=== PATIENT | female | born 1935 | race Caucasian/White ===

== ENCOUNTER 2016-06-22 22:32 | Emergency (ER) | payer MEDICARE, BC ==
[~2016-06-22] VITALS: Ht 149.9 cm; Wt 44.5 kg
[~2016-06-22 22:32] MED LIST: ALBUTEROL0.83 MG/ML IH; ARICEPT10 MG PO; ASPIRIN 32325 MG/TA1 PO; ASPIRIN 81M81 MG/TA2 PO; ASPIRIN E.C. 8181 MG PO; B COMPLEX & B121 TAB PO; BONIVA150 MG PO; CARDIOSTEROL PO; FOLIC ACID 40400 MCG PO; KLOR-CON M1010 MEQ PO; LASIX 20MG TABL20 MG PO; LEVAQUIN 750MG750 M1 PO; LOMOTIL 0.025 M1 TAB PO; MACROBID 1100 MG/CAP PO; MIRALAX PA17 GM/Dose PO; MULTIPLE VITAMI1 CAP PO; NIASPAN750 MG PO; NORCO 325 MG-51 TAB PO; OMEGA 31000 MG PO; OPTIVE 0.5%-0.915 ML OP; OSCAL 500 TAB500 MG PO; PROTONIX 40MG T40 MG PO; ROXICODONE 55 MG/TAB PO; TOPROL XL 25MG25 MG PO; TYLENOL PM EXTR1 TA1 PO; ULTRAM 50MG TAB50 MG PO; VITAMIN B12500 MCG PO; VITAMIN D31000 I1 PO; WELCHOL 625MG625 MG PO; WELLBUTRIN SR150 M1 PO; ZOFRAN8 MG PO
[2016-06-22 22:34] VITALS: BP 128/68; TEMP 97.4
[2016-06-22] MEDS ORDERED: LOMOTIL 0.025 M1 TAB PO (22:59)
[2016-06-22] MEDS ORDERED: ZOFRAN8 MG PO (22:59)
[2016-06-22] MEDS ORDERED: PRILOSEC10 MG PO (23:01)
[2016-06-22 23:18] LABS: BASO # 0.1 (0.0-0.2); BASO % 1.2 % (0.0-2.0); EOS # 0.4 (0.0-0.7); GRAN # 4.6 (1.4-6.5); GRAN % 62.1 % (42.2-75.2); HEMATOCRIT 40.4 % (37.0-47.0); HEMOGLOBIN 13.2 g/dl (12.5-16.0); LYMPH # 1.7 (1.2-3.4); MEAN CELL VOLUME 92 fl (80.0-100.0); MEAN CORPUSCULAR HEMOGLOBIN 30 pg (27.0-31.0); MEAN CORPUSCULAR HGB CONC 33 g/dl (33.0-37.0); MEAN PLATELET VOLUME 9.9 fl (7.4-10.4); MONO # 0.6 (0.1-0.6); MONO % 8.4 % (1.7-9.3); PLATELET COUNT 250 K/mm3 (130-400); RED BLOOD COUNT 4.37 M/mm3 (4.10-5.30); REDCELL DISTRIBUTION WIDTH-CV 13.6 % (11.5-14.5); WHITE BLOOD COUNT 7.3 K/mm3 (4.8-10.8)
[2016-06-22 23:29] LABS: ALANINE AMINOTRANSFERASE 18 U/L (9-52); ALBUMIN 4.1 gm/dL (3.5-5.0); ALKALINE PHOSPHATASE 59 U/L (50-136); ANION GAP 11 mmol/L (7-16); BILIRUBIN,TOTAL 0.7 mg/dL (0.0-1.0); BLOOD UREA NITROGEN 29 mg/dL (7-17); CALCIUM 9.1 mg/dL (8.4-10.2); CARBON DIOXIDE 26 mmol/L (22-30); CHLORIDE 101 mmol/L (98-107); GLUCOSE 112 mg/dL (74-106); LIPASE 296 U/L (23-300); POTASSIUM 4.6 mmol/L (3.4-5.0); SODIUM 137 mmol/L (137-145)
[2016-06-22 23:35] LABS: B-TYPE NATRIURETIC PEPTIDE 715 pg/mL (0-450)
[2016-06-22 23:36] LABS: C-REACTIVE PROTEIN < 0.5 mg/dL (0.0-0.9)
[2016-06-22 23:39] LABS: PH 5 (5-8); SQUAMOUS EPITHELIAL 0-2 /hpf; URINE APPEARANCE Hazy; URINE BACTERIA Occasional /hpf; URINE BILIRUBIN Negative (NEGATIVE); URINE BLOOD 1+ (NEGATIVE); URINE COLOR Yellow; URINE GLUCOSE Negative (NEGATIVE); URINE KETONE Negative (NEGATIVE); URINE UROBILINOGEN Negative (NEGATIVE); URINE WBC 20-50 /hpf
[2016-06-23] MEDS ORDERED: MACRODANTIN100 PO (00:16)
[2016-06-23 00:33] VITALS: PULSE 68
== END 2016-06-23 00:35 | disposition home or self-care (01) ==
LOC: COL.ER 22:32
PROVIDERS: Family Medicine
DX: N30.01 Acute cystitis with hematuria (principal); B96.20 Unspecified Escherichia coli [E. coli] as the cause of diseases classified elsewhere; I25.2 Old myocardial infarction; F03.90 Unspecified dementia, unspecified severity, without behavioral disturbance, psychotic disturbance, mood disturbance, and anxiety; I25.10 Atherosclerotic heart disease of native coronary artery without angina pectoris; Z95.5 Presence of coronary angioplasty implant and graft; Z87.891 Personal history of nicotine dependence
CPT/HCPCS: J2405; J7030

== ENCOUNTER 2017-01-25 15:06 | Inpatient (IN) | payer MEDICARE, BC ==
[~2017-01-25] VITALS: Ht 149.9 cm; Wt 53.6 kg
[~2017-01-25 15:06] MED LIST changes: +MACRODANTIN100 PO; +PRILOSEC10 MG PO
[2017-01-25 16:05] LABS: BASO # 0.1 (0.0-0.2); BASO % 0.8 % (0.0-2.0); EOS # 0.2 (0.0-0.7); GRAN # 14.4 (1.4-6.5); GRAN % 86.2 % (42.2-75.2); HEMATOCRIT 48.4 % (37.0-47.0); HEMOGLOBIN 15.6 g/dl (12.5-16.0); LYMPH # 1.3 (1.2-3.4); LYMPH % 7.7 % (20.0-51.0); MEAN CELL VOLUME 93 fl (80.0-100.0); MEAN CORPUSCULAR HEMOGLOBIN 30 pg (27.0-31.0); MEAN CORPUSCULAR HGB CONC 32 g/dl (33.0-37.0); MEAN PLATELET VOLUME 10.3 fl (7.4-10.4); MONO # 0.6 (0.1-0.6); MONO % 3.8 % (1.7-9.3); PLATELET COUNT 260 K/mm3 (130-400); RED BLOOD COUNT 5.22 M/mm3 (4.10-5.30); WHITE BLOOD COUNT 16.7 K/mm3 (4.8-10.8)
[2017-01-25 16:16] LABS: ADJUSTED CALCIUM 9.4 mg/dL (8.4-10.2); ALANINE AMINOTRANSFERASE 24 U/L (9-52); ALBUMIN 4.6 gm/dL (3.5-5.0); ALKALINE PHOSPHATASE 81 U/L (50-136); ANION GAP 12 mmol/L (7-16); BILIRUBIN,TOTAL 0.9 mg/dL (0.0-1.0); BLOOD UREA NITROGEN 28 mg/dL (7-17); CALCIUM 9.9 mg/dL (8.4-10.2); CARBON DIOXIDE 27 mmol/L (22-30); CHLORIDE 103 mmol/L (98-107); CREATININE, serum 0.94 mg/dL (0.52-1.25); GLUCOSE 113 mg/dL (74-106); POTASSIUM 4.2 mmol/L (3.4-5.0); SODIUM 142 mmol/L (137-145); TOTAL PROTEIN 7.9 gm/dL (6.4-8.2)
[2017-01-25 16:17] LABS: C-REACTIVE PROTEIN < 0.5 mg/dL (0.0-0.9)
[2017-01-25] MEDS ORDERED: NAMENDA 10MG TA10 MG PO (17:49)
[2017-01-25 21:23] VITALS: BP 150/61; PULSE 65; TEMP 65; TEMP 97.3
[2017-01-26] VITALS (7 sets, daily range): BP systolic 101–145; BP diastolic 53–72; PULSE 70–90; TEMP 98–99.5
[2017-01-26 06:44] LABS: BASO # 0.1 (0.0-0.2); BASO % 0.8 % (0.0-2.0); EOS # 0.1 (0.0-0.7); EOS % 1.2 % (0-4.0); GRAN # 7.8 (1.4-6.5); GRAN % 75.4 % (42.2-75.2); HEMATOCRIT 37.5 % (37.0-47.0); LYMPH # 1.2 (1.2-3.4); LYMPH % 11.7 % (20.0-51.0); MEAN CELL VOLUME 94 fl (80.0-100.0); MEAN CORPUSCULAR HEMOGLOBIN 30 pg (27.0-31.0); MEAN CORPUSCULAR HGB CONC 33 g/dl (33.0-37.0); MEAN PLATELET VOLUME 10.3 fl (7.4-10.4); MONO # 1.1 (0.1-0.6); MONO % 10.5 % (1.7-9.3); PLATELET COUNT 218 K/mm3 (130-400); RED BLOOD COUNT 4.01 M/mm3 (4.10-5.30); WHITE BLOOD COUNT 10.3 K/mm3 (4.8-10.8)
[2017-01-26 06:57] LABS: CALCIUM 7.5 mg/dL (8.4-10.2); CHOLESTEROL RISK RATIO 4.1; CREATININE, serum 0.7 mg/dL (0.52-1.25); POTASSIUM 3.4 mmol/L (3.4-5.0)
[2017-01-26 07:00] LABS: HEMOGLOBIN 12.2 g/dl (12.5-16.0)
[2017-01-26 08:47] LABS: COLLECTION METHOD CLEAN CATCH
[2017-01-26 09:03] LABS: MUCOUS Present /lpf; PH 5 (5-8); SQUAMOUS EPITHELIAL None Seen /hpf; URINE APPEARANCE Hazy; URINE BACTERIA None Seen /hpf; URINE BILIRUBIN Negative (NEGATIVE); URINE BLOOD 3+ (NEGATIVE); URINE COLOR Yellow; URINE GLUCOSE Negative (NEGATIVE); URINE KETONE 1+ (NEGATIVE); URINE LEUKOCYTE ESTERASE 3+ (NEGATIVE); URINE PROTEIN(semi-quant) 1+ (NEGATIVE); URINE RBC >50 /hpf; URINE UROBILINOGEN Negative (NEGATIVE)
[2017-01-26 09:04] LABS: URINE WBC >50 /hpf
[2017-01-26 15:05] LABS: HEMATOCRIT 39.5 % (37.0-47.0); HEMOGLOBIN 12.5 g/dl (12.5-16.0)
[2017-01-27] VITALS (13 sets, daily range): BP systolic 106–154; BP diastolic 52–96; PULSE 70–99; TEMP 97.3–98.5
[2017-01-27 07:20] LABS: BASO # 0.1 (0.0-0.2); BASO % 0.6 % (0.0-2.0); EOS # 0.2 (0.0-0.7); EOS % 1.6 % (0-4.0); GRAN # 11.6 (1.4-6.5); GRAN % 79.9 % (42.2-75.2); HEMATOCRIT 37.2 % (37.0-47.0); LYMPH # 1.4 (1.2-3.4); LYMPH % 9.7 % (20.0-51.0); MEAN CELL VOLUME 94 fl (80.0-100.0); MEAN CORPUSCULAR HEMOGLOBIN 30 pg (27.0-31.0); MEAN CORPUSCULAR HGB CONC 32 g/dl (33.0-37.0); MONO # 1.1 (0.1-0.6); MONO % 7.9 % (1.7-9.3); PLATELET COUNT 206 K/mm3 (130-400); RED BLOOD COUNT 3.97 M/mm3 (4.10-5.30); WHITE BLOOD COUNT 14.5 K/mm3 (4.8-10.8)
[2017-01-27 07:22] LABS: HEMOGLOBIN 11.9 g/dl (12.5-16.0)
[2017-01-27 07:48] LABS: CALCIUM 7.2 mg/dL (8.4-10.2); CREATININE, serum 0.58 mg/dL (0.52-1.25)
[2017-01-27 07:52] LABS: POTASSIUM 2.7 mmol/L (3.4-5.0)
[2017-01-28 04:51] VITALS: BP 143/76; PULSE 73; TEMP 97.6
[2017-01-28 07:23] LABS: BASO % 0.2 % (0.0-2.0); GRAN # 8.4 (1.4-6.5); GRAN % 89.9 % (42.2-75.2); HEMATOCRIT 37.7 % (37.0-47.0); LYMPH # 0.8 (1.2-3.4); LYMPH % 8.6 % (20.0-51.0); MEAN CELL VOLUME 94 fl (80.0-100.0); MEAN CORPUSCULAR HEMOGLOBIN 30 pg (27.0-31.0); MEAN CORPUSCULAR HGB CONC 32 g/dl (33.0-37.0); MEAN PLATELET VOLUME 11.1 fl (7.4-10.4); MONO # 0.1 (0.1-0.6); MONO % 0.9 % (1.7-9.3); PLATELET COUNT 210 K/mm3 (130-400); RED BLOOD COUNT 4.01 M/mm3 (4.10-5.30); WHITE BLOOD COUNT 9.3 K/mm3 (4.8-10.8)
[2017-01-28 07:35] LABS: CALCIUM 7.6 mg/dL (8.4-10.2); CREATININE, serum 0.62 mg/dL (0.52-1.25); MAGNESIUM 2.1 mg/dL (1.6-2.3); POTASSIUM 4.4 mmol/L (3.4-5.0)
[2017-01-28 09:31] VITALS: BP 127/65; PULSE 78; TEMP 98.2
[2017-01-28] MEDS ORDERED: ZYRTEC 10MG10 MG PO (09:42)
[2017-01-28] MEDS ORDERED: PREDNISONE20 MG PO (09:43)
[2017-01-28] MEDS ORDERED: ZANTAC 150MG T150 MG PO (09:43)
[2017-01-28] MEDS ORDERED: ASACOL HD800 MG PO (09:46)
[2017-01-29] MEDS ORDERED: FLAGYL500 MG PO (15:15)
== END 2017-01-28 11:30 | disposition home or self-care (01) | DRG 393 ==
LOC: COL.ER 15:06 → SURG 19:09
PROVIDERS: Emergency Medicine; Internal Medicine Gastroenterology; Nurse Practitioner; Nurse Practitioner Family; Physician Assistant
PROC: 0DBM8ZX Excision of Descending Colon, Via Natural or Artificial Opening Endoscopic, Diagnostic (ICD-10-PCS; 2017-01-27)
PROC: 0W3P8ZZ Control Bleeding in Gastrointestinal Tract, Via Natural or Artificial Opening Endoscopic (ICD-10-PCS; principal; 2017-01-27 09:30)
DX: K55.031 Focal (segmental) acute (reversible) ischemia of large intestine (principal); K55.21 Angiodysplasia of colon with hemorrhage; N39.0 Urinary tract infection, site not specified; Z66 Do not resuscitate; E86.0 Dehydration; I11.0 Hypertensive heart disease with heart failure; I50.9 Heart failure, unspecified; Z87.891 Personal history of nicotine dependence; F03.90 Unspecified dementia, unspecified severity, without behavioral disturbance, psychotic disturbance, mood disturbance, and anxiety; L29.8 Other pruritus; T37.8X5A Adverse effect of other specified systemic anti-infectives and antiparasitics, initial encounter; E87.6 Hypokalemia; K57.30 Diverticulosis of large intestine without perforation or abscess without bleeding; K64.0 First degree hemorrhoids
CPT/HCPCS: 99222-AI; 99231-AI; 99239; J1200; J1644; J1956; J2405; J2704; J2765; J3010; J3475; J7030; J7050; J7512; Q9967

== ENCOUNTER 2017-06-29 21:48 | Emergency (ER) | payer MEDICARE, BC ==
[~2017-06-29] VITALS: Ht 152.4 cm; Wt 46.4 kg
[~2017-06-29 21:48] MED LIST changes: +ASACOL HD800 MG PO; +FLAGYL500 MG PO; +NAMENDA 10MG TA10 MG PO; +PREDNISONE20 MG PO; +ZANTAC 150MG T150 MG PO; +ZYRTEC 10MG10 MG PO
[2017-06-29 21:50] VITALS: TEMP 97.1
[2017-06-29 23:00] LABS: PROTHROMBIN TIME 11.4 SECONDS (9.7-12.8)
[2017-06-29 23:05] LABS: BASO # 0.1 (0.0-0.2); BASO % 1.1 % (0.0-2.0); EOS # 0.4 (0.0-0.7); EOS % 5.5 % (0-4.0); GRAN # 4.4 (1.4-6.5); GRAN % 56.1 % (42.2-75.2); HEMATOCRIT 43.4 % (37.0-47.0); HEMOGLOBIN 13.7 g/dl (12.5-16.0); LYMPH # 2.2 (1.2-3.4); LYMPH % 27.7 % (20.0-51.0); MEAN CELL VOLUME 93 fl (80.0-100.0); MEAN CORPUSCULAR HEMOGLOBIN 29 pg (27.0-31.0); MEAN CORPUSCULAR HGB CONC 32 g/dl (33.0-37.0); MEAN PLATELET VOLUME 9.7 fl (7.4-10.4); MONO # 0.7 (0.1-0.6); MONO % 9.3 % (1.7-9.3); PLATELET COUNT 247 K/mm3 (130-400); RED BLOOD COUNT 4.67 M/mm3 (4.10-5.30); REDCELL DISTRIBUTION WIDTH-CV 14.1 % (11.5-14.5)
[2017-06-29 23:05] LABS: ALBUMIN 4.2 gm/dL (3.5-5.0); BILIRUBIN,TOTAL 0.5 mg/dL (0.0-1.0); CREATININE, serum 0.82 mg/dL (0.52-1.25); POTASSIUM 4.1 mmol/L (3.4-5.0); TOTAL PROTEIN 8.4 gm/dL (6.4-8.2)
[2017-06-29] MEDS ORDERED: ASPIRIN 81M81 MG/TA2 PO (23:35)
[2017-06-29 23:53] LABS: COLLECTION METHOD CLEAN CATCH
[2017-06-30] LABS: AMORPHOUS CRYSTAL Present /uL; MUCOUS Present /lpf; PH 6 (5-8); SQUAMOUS EPITHELIAL 0-2 /hpf; URINE APPEARANCE Hazy; URINE BACTERIA Rare /hpf; URINE BILIRUBIN Negative (NEGATIVE); URINE BLOOD Negative (NEGATIVE); URINE COLOR Yellow; URINE GLUCOSE Negative (NEGATIVE); URINE KETONE Negative (NEGATIVE); URINE LEUKOCYTE ESTERASE Trace (NEGATIVE); URINE NITRATE Positive (NEGATIVE); URINE PROTEIN(semi-quant) Negative (NEGATIVE); URINE RBC 0-2 /hpf; URINE UROBILINOGEN Negative (NEGATIVE)
[2017-06-30 04:38] VITALS: BP 173/80; PULSE 69
[2017-07-01] MEDS ORDERED: MACROBID 1100 MG/CAP PO (16:38)
== END 2017-06-30 04:28 | disposition short-term general hospital (02) ==
LOC: COL.ER 21:48
PROVIDERS: Emergency Medicine
DX: I77.89 Other specified disorders of arteries and arterioles (principal); N39.0 Urinary tract infection, site not specified; R07.89 Other chest pain; I11.0 Hypertensive heart disease with heart failure; I50.9 Heart failure, unspecified; K21.9 Gastro-esophageal reflux disease without esophagitis; F03.90 Unspecified dementia, unspecified severity, without behavioral disturbance, psychotic disturbance, mood disturbance, and anxiety; Z87.891 Personal history of nicotine dependence; Z87.440 Personal history of urinary (tract) infections; Z90.710 Acquired absence of both cervix and uterus; Z90.49 Acquired absence of other specified parts of digestive tract; Z90.89 Acquired absence of other organs; Z96.641 Presence of right artificial hip joint; Z79.82 Long term (current) use of aspirin
CPT/HCPCS: J0696; J2270; J3010; Q9967

== ENCOUNTER 2017-07-25 14:17 | Inpatient (IN) | payer MEDICARE, BC ==
[~2017-07-25] VITALS: Ht 167.6 cm; Wt 41.8 kg
[2017-07-25 15:17] LABS: BASO # 0.1 (0.0-0.2); BASO % 0.6 % (0.0-2.0); EOS # 0.1 (0.0-0.7); EOS % 0.3 % (0-4.0); GRAN # 15.1 (1.4-6.5); GRAN % 86.3 % (42.2-75.2); HEMOGLOBIN 13.1 g/dl (12.5-16.0); LYMPH # 1.1 (1.2-3.4); LYMPH % 6.2 % (20.0-51.0); MEAN CELL VOLUME 96 fl (80.0-100.0); MEAN CORPUSCULAR HEMOGLOBIN 29 pg (27.0-31.0); MEAN CORPUSCULAR HGB CONC 31 g/dl (33.0-37.0); MEAN PLATELET VOLUME 10.1 fl (7.4-10.4); MONO # 1.1 (0.1-0.6); PLATELET COUNT 364 K/mm3 (130-400); RED BLOOD COUNT 4.46 M/mm3 (4.10-5.30); REDCELL DISTRIBUTION WIDTH-CV 13.7 % (11.5-14.5)
[2017-07-25 16:06] LABS: INR 1.2 (0.8-3.0); PROTHROMBIN TIME 14.2 SECONDS (9.7-12.8)
[2017-07-25 16:10] LABS: ALANINE AMINOTRANSFERASE 32 U/L (9-52); ALBUMIN 3.4 gm/dL (3.5-5.0); ALKALINE PHOSPHATASE 113 U/L (50-136); ANION GAP 15 mmol/L (7-16); AST,SGOT 30 U/L (15-37); BILIRUBIN,TOTAL 0.5 mg/dL (0.0-1.0); BLOOD UREA NITROGEN 37 mg/dL (7-17); CALCIUM 8.9 mg/dL (8.4-10.2); CARBON DIOXIDE 26 mmol/L (22-30); CHLORIDE 103 mmol/L (98-107); CREATININE, serum 1.23 mg/dL (0.52-1.25); GLUCOSE 211 mg/dL (74-106); POTASSIUM 4.1 mmol/L (3.4-5.0); SODIUM 144 mmol/L (137-145); TOTAL PROTEIN 7.4 gm/dL (6.4-8.2)
[2017-07-25 16:24] LABS: TROPONIN-I < 0.012 ng/mL (0.000-0.034)
[2017-07-25] MEDS ORDERED: TYLENOL 325MG325 MG PO (16:53)
[2017-07-25] MEDS ORDERED: LOMOTIL 0.025 M1 TAB PO (16:53)
[2017-07-25] MEDS ORDERED: OXYGEN MC (16:55)
[2017-07-25] MEDS ORDERED: XOPENEX 0.0.63 MG/3 IH (16:55)
[2017-07-25] MEDS ORDERED: FERRO-TIME325 MG PO (16:59)
[2017-07-25] MEDS ORDERED: PRINIVIL10 MG PO (17:00)
[2017-07-25 17:18] LABS: COLLECTION METHOD CATHETER
[2017-07-25 17:35] LABS: C-REACTIVE PROTEIN 18.8 mg/dL (0.0-0.9)
[2017-07-25 17:37] LABS: BUDDING YEAST Present /hpf; MUCOUS Present /lpf; PH 5 (5-8); SQUAMOUS EPITHELIAL 0-2 /hpf; URINE APPEARANCE Cloudy; URINE BACTERIA Rare /hpf; URINE BILIRUBIN Negative (NEGATIVE); URINE BLOOD 1+ (NEGATIVE); URINE COLOR Yellow; URINE GLUCOSE Negative (NEGATIVE); URINE KETONE Negative (NEGATIVE); URINE LEUKOCYTE ESTERASE Negative (NEGATIVE); URINE NITRATE Negative (NEGATIVE); URINE PROTEIN(semi-quant) 1+ (NEGATIVE); URINE UROBILINOGEN Negative (NEGATIVE)
[2017-07-25 19:20] VITALS: BP 109/65; PULSE 95; TEMP 97.7
[2017-07-25 23:34] VITALS: BP 106/60; PULSE 88; TEMP 97.5
[2017-07-26 03:41] VITALS: BP 115/56; PULSE 88; TEMP 97.5
[2017-07-26 06:07] LABS: MEAN CELL VOLUME 94 fl (80.0-100.0); MEAN CORPUSCULAR HGB CONC 31 g/dl (33.0-37.0); MEAN PLATELET VOLUME 9.9 fl (7.4-10.4); PLATELET COUNT 303 K/mm3 (130-400); RED BLOOD COUNT 3.48 M/mm3 (4.10-5.30); REDCELL DISTRIBUTION WIDTH-CV 13.7 % (11.5-14.5)
[2017-07-26 06:14] LABS: CALCIUM 8.1 mg/dL (8.4-10.2); CREATININE, serum 1.05 mg/dL (0.52-1.25); MAGNESIUM 2.2 mg/dL (1.6-2.3); POTASSIUM 4.2 mmol/L (3.4-5.0)
[2017-07-26 06:18] LABS: HEMATOCRIT 32.6 % (37.0-47.0); HEMOGLOBIN 10.1 g/dl (12.5-16.0); MEAN CORPUSCULAR HEMOGLOBIN 29 pg (27.0-31.0)
[2017-07-26 07:43] LABS: BAND 3 % (0-10); BASOPHIL 1 % (0-2); LYMPHOCYTE 15 % (20.0-51.0); NEUTROPHILS 76 % (42.0-75.2); PLATELET ESTIMATE NORMAL (NORMAL)
[2017-07-26 08:01] VITALS: BP 106/48; PULSE 106; TEMP 98.2
[2017-07-26 11:09] VITALS: BP 95/47; PULSE 112; TEMP 97.8
[2017-07-26 16:21] VITALS: BP 105/51; PULSE 103; TEMP 97.8
[2017-07-26 17:44] LABS: ARTERIAL BLD GAS O2 SATURATION 96.3 % (92-100); ARTERIAL BLD GAS TCO2 CT 26.4; ARTERIAL BLOOD GAS BASE EXCESS 0.9 (-2-2); ARTERIAL BLOOD GAS HCO3 25.2 meq/L (22-26); ARTERIAL BLOOD GAS PO2 86.5 mmHg (80-100); ARTERIAL BLOOD GAS pH 7.43 (7.35-7.45)
[2017-07-26 19:09] VITALS: BP 103/57; PULSE 97; TEMP 98
[2017-07-26 23:36] VITALS: BP 107/56; PULSE 100; TEMP 97.9
[2017-07-27] VITALS (8 sets, daily range): BP systolic 108–146; BP diastolic 49–75; PULSE 89–114; TEMP 97.8–98.1
[2017-07-27 05:38] LABS: ARTERIAL BLD GAS O2 SATURATION 92.2 % (92-100); ARTERIAL BLD GAS TCO2 CT 24.3; ARTERIAL BLOOD GAS HCO3 23.1 meq/L (22-26); ARTERIAL BLOOD GAS PCO2 36.5 mmHg (35-45); ARTERIAL BLOOD GAS PO2 62.9 mmHg (80-100); ARTERIAL BLOOD GAS pH 7.42 (7.35-7.45)
[2017-07-27 06:12] LABS: BASO # 0.1 (0.0-0.2); BASO % 0.6 % (0.0-2.0); EOS # 0.3 (0.0-0.7); EOS % 3.6 % (0-4.0); GRAN # 5.4 (1.4-6.5); LYMPH # 1.2 (1.2-3.4); LYMPH % 15.2 % (20.0-51.0); MEAN CELL VOLUME 93 fl (80.0-100.0); MEAN CORPUSCULAR HGB CONC 31 g/dl (33.0-37.0); MEAN PLATELET VOLUME 9.7 fl (7.4-10.4); MONO # 0.9 (0.1-0.6); MONO % 11.1 % (1.7-9.3); PLATELET COUNT 289 K/mm3 (130-400); RED BLOOD COUNT 2.98 M/mm3 (4.10-5.30); REDCELL DISTRIBUTION WIDTH-CV 13.5 % (11.5-14.5)
[2017-07-27 06:13] LABS: HEMATOCRIT 27.7 % (37.0-47.0); HEMOGLOBIN 8.7 g/dl (12.5-16.0); MEAN CORPUSCULAR HEMOGLOBIN 29 pg (27.0-31.0)
[2017-07-27 06:26] LABS: CALCIUM 7.6 mg/dL (8.4-10.2); CREATININE, serum 0.81 mg/dL (0.52-1.25); POTASSIUM 3.3 mmol/L (3.4-5.0)
[2017-07-28 04:26] VITALS: BP 136/78; PULSE 110; TEMP 98.1
[2017-07-28 06:20] LABS: BASO % 0.6 % (0.0-2.0); EOS # 0.5 (0.0-0.7); EOS % 7.3 % (0-4.0); GRAN # 4.4 (1.4-6.5); GRAN % 67.3 % (42.2-75.2); LYMPH # 0.9 (1.2-3.4); LYMPH % 13.8 % (20.0-51.0); MEAN CELL VOLUME 93 fl (80.0-100.0); MEAN CORPUSCULAR HGB CONC 32 g/dl (33.0-37.0); MEAN PLATELET VOLUME 9.3 fl (7.4-10.4); MONO # 0.7 (0.1-0.6); MONO % 10.5 % (1.7-9.3); PLATELET COUNT 323 K/mm3 (130-400); RED BLOOD COUNT 3.22 M/mm3 (4.10-5.30); REDCELL DISTRIBUTION WIDTH-CV 13.5 % (11.5-14.5)
[2017-07-28 06:26] LABS: HEMATOCRIT 29.8 % (37.0-47.0); HEMOGLOBIN 9.4 g/dl (12.5-16.0); MEAN CORPUSCULAR HEMOGLOBIN 29 pg (27.0-31.0)
[2017-07-28 06:29] LABS: CALCIUM 8.1 mg/dL (8.4-10.2); CREATININE, serum 0.7 mg/dL (0.52-1.25); MAGNESIUM 1.7 mg/dL (1.6-2.3); POTASSIUM 4.3 mmol/L (3.4-5.0)
[2017-07-28 08:25] VITALS: BP 109/61; PULSE 117; TEMP 98.1
[2017-07-28 10:54] LABS: INR 1.2 (0.8-3.0); PROTHROMBIN TIME 13.8 SECONDS (9.7-12.8)
[2017-07-28 12:15] VITALS: BP 129/69; PULSE 87; TEMP 98.1
[2017-07-28 16:08] VITALS: BP 134/72; PULSE 92; TEMP 97.8
[2017-07-28 16:28] LABS: PLEURAL FLUID COLOR YELLOW
[2017-07-28 16:29] LABS: PLEURAL FLUID APPEARANCE HAZY
[2017-07-28 16:32] LABS: PLEURAL FLUID RBC 3000 /mm3 (0-0); PLEURAL FLUID WBC 1116 /mm3
[2017-07-28 16:41] LABS: GLUCOSE,PLEURAL FLUID 122 mg/dL; TOTAL PROTEIN,PLEURAL FLUID 3.6 gm/dL
[2017-07-28 19:43] VITALS: BP 112/60; PULSE 113; TEMP 98.3
[2017-07-29 00:15] VITALS: BP 131/73; PULSE 96; TEMP 98
[2017-07-29 03:05] VITALS: BP 115/62; PULSE 101; TEMP 98.6
[2017-07-29 06:32] LABS: BASO # 0.1 (0.0-0.2); BASO % 0.7 % (0.0-2.0); EOS # 0.7 (0.0-0.7); GRAN # 6.3 (1.4-6.5); GRAN % 67.9 % (42.2-75.2); LYMPH # 1.2 (1.2-3.4); MEAN CELL VOLUME 90 fl (80.0-100.0); MEAN CORPUSCULAR HGB CONC 32 g/dl (33.0-37.0); MEAN PLATELET VOLUME 9.1 fl (7.4-10.4); PLATELET COUNT 345 K/mm3 (130-400); RED BLOOD COUNT 3.45 M/mm3 (4.10-5.30); REDCELL DISTRIBUTION WIDTH-CV 13.5 % (11.5-14.5)
[2017-07-29 06:37] LABS: HEMATOCRIT 31.1 % (37.0-47.0); HEMOGLOBIN 9.9 g/dl (12.5-16.0); MEAN CORPUSCULAR HEMOGLOBIN 29 pg (27.0-31.0)
[2017-07-29 06:55] LABS: CALCIUM 8.4 mg/dL (8.4-10.2); CREATININE, serum 0.76 mg/dL (0.52-1.25); POTASSIUM 4.3 mmol/L (3.4-5.0)
[2017-07-29 08:05] VITALS: BP 124/67; PULSE 102; TEMP 97.9
[2017-07-29] MEDS ORDERED: LEVAQUIN 750MG750 M1 PO (08:58)
[2017-07-29] MEDS ORDERED: OMNICEF 300MG300 MG PO (08:59)
[2017-07-29] MEDS ORDERED: TOPROL XL 25MG25 MG PO (08:59)
[2017-07-29 10:34] VITALS: BP 124/67; PULSE 102; TEMP 97.9
[2017-08-02] MEDS ORDERED: TYLENOL SU650 MG/SUP RC (02:25)
[2017-08-02] MEDS ORDERED: DULCOLAX S10 MG/SUPP RC (02:26)
[2017-08-02] MEDS ORDERED: MILK OF MA400 MG/52 (02:28)
[2017-08-02] MEDS ORDERED: ALUMINUM & MAG355 ML PO (02:31)
[2017-08-02] MEDS ORDERED: IMODIUM A-D2 MG PO (02:36)
== END 2017-07-29 11:46 | DRG 193 ==
LOC: COL.ER 14:17 → MEDICAL 18:12
PROVIDERS: Emergency Medicine; Family Medicine; Internal Medicine; Physician Assistant
PROC: 0W9B3ZZ Drainage of Left Pleural Cavity, Percutaneous Approach (ICD-10-PCS; principal; 2017-07-28)
DX: J18.9 Pneumonia, unspecified organism (principal); I71.02 Dissection of abdominal aorta; J90 Pleural effusion, not elsewhere classified; R44.3 Hallucinations, unspecified; I31.3 Pericardial effusion (noninflammatory); I10 Essential (primary) hypertension; E87.6 Hypokalemia; R09.02 Hypoxemia; Z66 Do not resuscitate; R63.6 Underweight; Z68.23 Body mass index [BMI] 23.0-23.9, adult
CPT/HCPCS: 99223-AI; 99231-AI; 99232-AI; 99233-AI; 99239; A4314; J0692; J1956; J2543; J3370; J3480; J7030; J7050; Q9967